=== PATIENT | female | born 1960 | race Caucasian/White ===

== ENCOUNTER 2018-03-03 11:09 | Emergency (ER) | payer MEDICAID ==
[~2018-03-03] VITALS: Ht 170.2 cm; Wt 56.9 kg
[~2018-03-03 11:09] MED LIST: AMIO200T40 PO; ASPI-1265 PO; HYDR-569 PO; NICO-631 TD; SERT25TA PO; TIOT18CA3 PO
[2018-03-03] MEDS ORDERED: verapamil 2.5 mg/ml inj IV ONE (11:35)
[2018-03-03] MEDS ORDERED: morphine 4 MG/ML inj SYRINge IV ONE (11:45)
[2018-03-03 11:53] LABS: BASOPHILS % (AUTO) 0.4 % (0-1); EOSINOPHILS # (AUTO) 0.2 X10'3 (0-0.9); EOSINOPHILS % (AUTO) 2.5 % (0-6); HEMATOCRIT 37.1 % (35.0-45.0); HEMOGLOBIN 12.3 g/dl (12.0-16.0); LYMPHOCYTES # (AUTO) 1.3 X10'3 (1.1-4.8); LYMPHOCYTES % (AUTO) 16.5 % (21-51); MEAN CORPUSCULAR HEMOGLOBIN 30.2 PG (27.0-31.0); MEAN CORPUSCULAR VOLUME 91.4 FL (78-98); MEAN PLATELET VOLUME 7.1 FL (7.4-10.4); MONOCYTES # (AUTO) 1.1 X10'3 (0-0.9); MONOCYTES % (AUTO) 13.6 % (2-12); NEUTROPHILS # (AUTO) 5.3 X10'3 (1.8-7.7); PLATELET COUNT 345 X10'3 (140-440); RED BLOOD COUNT 4.06 X10'6 (4.20-5.60); RED CELL DISTRIBUTION WIDTH 14.4 % (11.5-14.5); WHITE BLOOD COUNT 7.8 X10'3 (4.5-11.0)
[2018-03-03 12:03] LABS: ALANINE AMINOTRANSFERASE 10 U/L (12-78); ALBUMIN 3.2 G/DL (3.4-5.0); ALBUMIN/GLOBULIN RATIO 0.8 (1.1-1.5); ALKALINE PHOSPHATASE 127 IU/L (46-116); ANION GAP 8 (8-16); ASPARTATE AMINO TRANSFERASE 5 U/L (10-37); BILIRUBIN,TOTAL 0.4 MG/DL (0.1-1.0); BLOOD UREA NITROGEN 6 MG/DL (7-18); CALCIUM 8.7 MG/DL (8.5-10.1); CHLORIDE 104 MMOL/L (99-107); CREATININE 0.67 MG/DL (0.40-0.90); GLUCOSE 85 MG/DL (70-104); POTASSIUM 4.4 MMOL/L (3.5-5.1); SODIUM 137 MMOL/L (135-145); TOTAL CARBON DIOXIDE 25.4 MMOL/L (24-32); TOTAL PROTEIN 7.4 G/DL (6.4-8.2); eGFR > 90 ML/MIN
[2018-03-03 12:04] LABS: D-DIMER 2.62 MG/L FEU (0-0.50); INR 1.1 INR; PARTIAL THROMBOPLASTIN TIME 27 SECONDS (22-32)
[2018-03-03] MEDS ORDERED: AMIO200T40 PO (12:29)
[2018-03-03 13:00] VITALS: BP 100/66
== END 2018-03-03 13:03 | disposition home or self-care (01) ==
LOC: ER 11:09
DX: I48.0 Paroxysmal atrial fibrillation (principal); Z95.2 Presence of prosthetic heart valve; Z79.82 Long term (current) use of aspirin; Z79.899 Other long term (current) drug therapy; Z87.891 Personal history of nicotine dependence
CPT/HCPCS: 36415; 71045; 80053; 83880; 84484; 85025; 85379; 85610; 85730; 93005; 96374; 96375; 99285; J2270

== ENCOUNTER 2025-03-15 20:46 | Emergency (ER) | payer MEDICAID ==
[~2025-03-15] VITALS: Ht 170.2 cm; Wt 65.0 kg
[~2025-03-15 20:46] MED LIST changes: -AMIO200T40 PO; +AMIO200T76 PO; +HYDR-4383 PO; -HYDR-569 PO
[2025-03-15 21:04] LABS: MEAN PLATELET VOLUME 7.4 FL (7.4-10.4); RED CELL DISTRIBUTION WIDTH 17.1 % (11.5-14.5)
[2025-03-15 21:10] LABS: CREATININE 1.07 MG/DL (0.40-0.90); TOTAL CARBON DIOXIDE 25.6 MMOL/L (24-32); eCRCL 52 ML/MIN; eGFR 52 ML/MIN
--- NOTE | 2025-03-15 21:28 | RADIOLOGY REPORT ---
EXAM: DI CHEST,SINGLE VIEW TECHNIQUE: Single frontal chest radiograph CLINICAL HISTORY: CHEST PAIN COMPARISON: None Findings/Impression: Frontal chest radiograph demonstrates no acute osseous or superficial soft tissue abnormalities. The trachea is midline. The cardiac silhouette and mediastinum are within normal limits. Left lower lung field hazy airspace opacity. No pneumothorax or pleural effusions.
[2025-03-15 21:41] LABS: LEUKOCYTE ESTERASE ,URINE TRACE (Neg); NITRITES, URINE POSITIVE (Neg); OCCULT BLOOD,URINE NEGATIVE (Neg)
[2025-03-15 21:43] LABS: UA COLLECTION TYPE NON-SPECIFIED
[2025-03-15 22:01] LABS: FINE GRANULAR CAST 0-3 /LPF (NEGATIVE); RENAL CELLS, URINE FEW /HPF; SQUAMOUS EPITHELIAL CELL,UR MODERATE /LPF (FEW)
--- NOTE | 2025-03-15 23:34 | Physician Documentation ---
History of Present Illness ~ General Chief Complaint: Multiple Medical Complaints Stated Complaint: SOB Time Seen by MD: 23:26 Primary Medical Doctor: NONE Mode of Arrival: POV History of Present Illness Initial Comments Patient presents to the emergency room with chief complaint of body aches, bilateral eyes hurting, sore throat, subjective fevers. Occasional nausea. No dysuria or problems defecating. Denies abdominal pain. Has had nothing for her symptoms. Medication Reconciliation Allergies: Coded Allergies: No Known Allergies (Unverified , 03/03/18) Scheduled Amiodarone Hcl (Cordarone), 200 MG PO DAILY Aspirin (Aspirin), 81 MG PO Q24H Hydrocodone/Acetaminophen (Gable 5-325 Tablet), 1-2 TAB PO Q4HPRN Nicotine 14 MG Patch* (Habitrol 14 MG Patch*), 1 PATCH TD DAILY Sertraline Hcl* (Zoloft*), 1 TAB PO HS, (Reported) Tiotropium Banco (Spiriva), 1 INHALER PO DAILY, (Reported) Past Medical History Past Medical History: No Pertinent History Past Surgical History: noncontributory Alcohol Use: None Lives In: Home Review of Systems ROS All review of systems negative except as per HPI Physical Exam Physical Exam Vital Signs: Temperature: 98.9, Source: Oral, Heart Rate: 92, Respiratory Rate: 17, BP: 102/51, Pulse Oximetry: 100, Weight: 65.000 Physical Exam General: Patient is awake, alert, oriented x4 in no acute distress and well appearing.~ Head: Normocephalic and atraumatic. Eyes: Conjunctival normal. EOMI. PERRL. ENT: Mucous membranes moist. Neck: Supple, trachea is midline. Chest: Clear to auscultation bilaterally without rales, rhonchi, or wheezes. The re is no accessory muscle use or retractions. Cardiac: RRR without murmurs, gallops, or rubs. Abd: Soft, nondistended, nontender, with normoactive bowel sounds. No guarding, rebound, or rigidity. Progress Results/Orders Results/Orders Orders - MASTER ABREU MD Chest,Single View (03/15/25 21:10) Electrocardiogram (03/15/25 20:57) Cult Urine + [place] [address] (03/15/25 22:01) Cult Throat + R/O Beta Strep (03/16/25 01:21) Completed Orders - MASTER ABREU MD Cbc/Diff (03/15/25 20:57) MG (03/15/25 20:57) Chest,Single View (03/15/25 21:10) Hs Troponin I W Calculations (03/15/25 20:57) Ua W/Microscopic, Cult If Ind (03/15/25 21:14) Strep A Rapid (03/15/25 23:35) Procalcitonin (03/15/25 23:35) Ketorolac Trometh 15mg/Ml Vial (Toradol (03/15/25 23:35) Acetaminophen 325mg Tablet (Tylenol Tabl (03/15/25 23:35) Ondansetron Inj. (Zofran 4mg/2ml Vial) (03/15/25 23:35) Potassium Cl Sr Tablet (K-Dur Tablet) (03/15/25 23:46) Normal Saline 1000ml (0.9% Sodium Chlori (03/15/25 23:50) CMP (03/15/25 20:50) PBNP (03/15/25 20:50) Ceftriaxone/Z4j-Kuugfulq 1gm (Rocephin 1 (03/16/25 00:00) Calcium Carbonate 500mg Tablet (Oscal Ta (03/16/25 00:55) Sodium Chloride Tablet (Sodium Chloride (03/16/25 00:55) Medications Received in ER Medications (Trade) Dose Ordered Sig/Risa Route PRN Reason Start Time Stop Time Status Last Admin Dose Admin (Toradol injection) 15 mg ONCE ONCE IV 03/15/25 23:35 03/15/25 23:43 DC 03/16/25 00:14 15 MG (Tylenol tablet) 650 mg ONCE ONCE PO 03/15/25 23:35 03/15/25 23:37 DC 03/16/25 00:13 650 MG (Zofran 4mg/2ml vial) 4 mg ONCE ONCE IV 03/15/25 23:35 03/15/25 23:37 DC 03/16/25 00:12 4 MG (K-DUR tablet) 40 meq ONCE STAT PO 03/15/25 23:46 03/15/25 23:47 DC 03/16/25 00:13 40 MEQ Sodium Chloride 1,000 ml @ 1,000 mls/hr ONCE ONCE IV 03/15/25 23:50 03/16/25 00:49 DC 03/16/25 00:12 1,000 MLS/HR Ceftriaxone Sodium 50 ml @ 100 mls/hr ONCE ONCE IV 03/16/25 00:00 03/16/25 00:29 DC 03/16/25 00:14 100 MLS/HR (Oscal tablet) 500 mg ONCE ONCE PO 03/16/25 00:55 03/16/25 00:56 DC 03/16/25 01:12 500 MG (sodium chloride tablet) 1 gm ONCE ONCE PO 03/16/25 00:55 03/16/25 00:56 DC 03/16/25 01:12 1 GM Vital Signs 03/15/25 03/15/25 03/15/25 03/15/25 20:54 21:52 21:53 23:20 Temp 98.9 98.9 98.9 Pulse 95 92 92 Resp 16 17 15 17 B/P (MAP) 100/51 95/51 (66) 102/51 (68) Pulse Ox 99 100 100 03/16/25 03/16/25 00:14 00:45 Temp 98.9 Pulse 94 Resp 16 17 B/P (MAP) 94/55 (68) Pulse Ox 100 Laboratory Tests Test 03/15/25 20:50 03/15/25 21:14 03/16/25 00:57 White Blood Count 13.1 H Red Blood Count 3.51 L Hemoglobin 7.8 L Hematocrit 25.1 L Mean Corpuscular Volume 71.6 L Mean Corpuscular Hemoglobin 22.2 L Mean Corpuscular Hemoglobin Concent 31.0 L Red Cell Distribution Width 17.1 H Platelet Count 202 Mean Platelet Volume 7.4 Neutrophils (%) (Auto) 84.3 H Lymphocytes (%) (Auto) 2.8 L Monocytes (%) (Auto) 12.6 H Eosinophils (%) (Auto) 0.1 Basophils (%) (Auto) 0.2 Neutrophils # (Auto) 11.0 H Lymphocytes # (Auto) 0.4 L Monocytes # (Auto) 1.6 H Eosinophils # (Auto) 0.0 Basophils # (Auto) 0.0 CBC Comment Sodium Level 125 L Potassium Level 3.1 L Chloride Level 90 L Carbon Dioxide Level 25.6 Anion Gap 9 Blood Urea Nitrogen 14 Creatinine 1.07 H Estimated GFR/1.73 m2 52 BUN/Creatinine Ratio 13.1 Glucose Level 136 H Calcium Level 7.9 L Magnesium Level 1.2 L Total Bilirubin 2.0 H Aspartate Amino Transf (AST/SGOT) 61 H Alanine Aminotransferase (ALT/SGPT) 39 Alkaline Phosphatase 222 H Troponin I High Sensitivity 12 Pro-B-Type Natriuretic Peptide 5666 H Total Protein 7.0 Albumin 3.0 L Globulin 4.0 Albumin/Globulin Ratio 0.8 L Procalcitonin 1.93 H Chemistry Comments Urine Specimen Description Non-specified Urine Color Yellow Urine Clarity Clear Urine pH 6.0 Urine Specific [place] 1.015 Urine Protein 30 H Urine Glucose (UA) 100 H Urine Ketones Trace H Urine Occult Blood Negative Urine Nitrite Positive H Urine Bilirubin Moderate Urine Urobilinogen >=8.0 H Urine Leukocyte Esterase Trace H Urine RBC 0-2 Urine WBC 5-10 H Urine Squamous Epithelial Cells Moderate Urine Renal Cells Few Urine Bacteria 4+ Urine Fine Granular Casts 0-3 Urine Culture Indicated Indicated Volume Urine Centrifuged 10 ml Urine Comment Group A Streptococcus Rapid Negative Microbiology Date/Time Source Procedure Growth Status 03/15/25 22:01 Urine Nonspecified Urine Culture - Preliminary Culture received. Resulted Medical Decision Making Findings Patient presents to the emergency room for evaluation of generalized symptoms. Differentials include but are not limited to viral infection, dehydration, el ectrolyte disturbances, urinary tract infection therefore emergent labs ordered. Patient does have a urinary tract infection and antibiotics initiated. I believe she will do well on outpatient basis. Departure Disposition: HOME / SELF CARE / HOMELESS Impression: Primary Impression: Urinary tract infection Additional Impression: Hyponatremia Condition: Stable Discharge Instructions: Urinary Tract Infection, Adult Referrals: NO PRIMARY CARE PROVIDER (PCP) Prescriptions Cephalexin*Monohydrate* (Keflex*) 500 Mg Capsule 1 CAP PO Q12H for 10 Days, #20 CAP Prov: MASTER ABREU MD 03/16/25 Sodium Chloride (SODIUM CHLORIDE tablet) 1,000 Mg Tablet 1 TAB PO Q12H, #6 TAB 0 Refills Prov: MASTER ABREU MD 03/16/25 Signature Scribe Signature: No scribe Attestation: The note accurately reflects work and decisions made by me.Master Abreu MD 03/16/25 01:56 MASTER ABREU MD Mar 15, 2025 23:34
[2025-03-16] MEDS: normal saline 1000ml 1,000 ML IV ONE (00:12)
[2025-03-16] MEDS: ondansetron/PF 4mg/2ml inj IV ONE (00:12)
[2025-03-16] MEDS: potassium Cl 20 mEq SR tablet PO STA (00:13)
[2025-03-16] MEDS: ketorolac trometh 15mg/ml vial 15 MG/ML ML IV ONE (00:14)
[2025-03-16] MEDS: CefTRIAXone/D5W-Rocephin 1gm 50 ML IV ONE (00:14)
[2025-03-16 00:21] LABS: PRO BRAIN NATRIURETIC PEPTIDE 5666 PG/ML (0-125)
[2025-03-16] MEDS: calcium carbonate 500mg tablet PO ONE (01:12)
[2025-03-16 01:20] LABS: STREP A SCREEN NEGATIVE (Neg)
[2025-03-16] MEDS ORDERED: CEPH-585 PO (01:56)
[2025-03-16] MEDS ORDERED: SODI1TAB2 PO (01:56)
[2025-03-16 02:00] VITALS: BP 98/52; PULSE 96; RESP 17; TEMP 98.9; O2SAT 100
--- NOTE | 2025-03-16 05:49 | ELECTROCARDIOGRAPH REPORT ---
[facility] Test Date: 2025-03-15 Test Time: 20:52:20 Pat Name: SANDY CALDERON Department: EMERGENCY ROOM Room: Gender: F Chief Writer: NATIVIDAD : 1960 Requested By: AUBREY BLACKMON Order Number: [id number] Reading MD: Dr. Jordin Billingsley Measurements Intervals [place] Rate: 100 P: -32 ID: [id number] QRS: 11 QRSD: 96 T: 81 QT: 376 QTc: 485 Interpretive Statements Pacemaker spikes or artifacts Sinus tachycardia Atrial premature complexes Anteroseptal infarct, age indeterminate Electronically Signed On 03-23-2025 21:51:[address] Jordin Billingsley Please click the below link to view image of tracing.
== END 2025-03-16 02:15 | disposition home or self-care (01) ==
LOC: ER 20:46
DX: N39.0 Urinary tract infection, site not specified (principal); E87.1 Hypo-osmolality and hyponatremia; Z95.0 Presence of cardiac pacemaker; Z79.899 Other long term (current) drug therapy
CPT/HCPCS: 36415; 71045; 80053; 81001; 83735; 83880; 84145; 84484; 85025; 87081; 87088; 87880; 93005; 96365; 96375; 99285; J0696; J1885; J2405; J7030; 96361